=== PATIENT | female | born 1945 | race Hispanic/Latino ===

== ENCOUNTER → 2021-07-08 | Outpatient (CLI) | payer MEDICARE, BC | END | disposition home or self-care (01) | LOC: RAH 12:15 | PROVIDERS: ATTEND Internal Medicine | DX: R91.8 Other nonspecific abnormal finding of lung field (principal) | CPT/HCPCS: 71046 ==

== ENCOUNTER → 2023-07-04 | Outpatient (CLI) | payer MEDICARE | END | disposition home or self-care (01) | LOC: SHCH 14:08 | PROVIDERS: ATTEND Student in an Organized Health Care Education/Training Program | DX: R06.02 Shortness of breath (principal) | CPT/HCPCS: 93306 ==

== ENCOUNTER → 2024-09-30 | Outpatient (CLI) | payer MEDICARE ==
[2024-09-30 12:34] LABS: CHOLESTEROL 184 mg/dL (<200); HDL CHOLESTEROL 67 mg/dL (35-85); LDL DIRECT 93 mg/dL (0-99); TRIGLYCERIDES 90 mg/dL (30-200)
== END | disposition home or self-care (01) ==
LOC: LAB 05-29 14:02
PROVIDERS: ATTEND Student in an Organized Health Care Education/Training Program
DX: E78.5 Hyperlipidemia, unspecified (principal)
CPT/HCPCS: 36415; 80061